=== PATIENT | female | born 1985 | race Caucasian/White ===

== ENCOUNTER → 2017-01-06 | Day surgery (SDC) | payer OTHER ==
[~2017-01-06] MED LIST: ACETAMINOPHEN/HYDROcodone 325 MG/5 MG TAB ONE; BUPIVACAINE/EPINEPHRINE 0.5% 50 ML VIAL ONE; KETOROLAC TROMETHAMINE 30 MG/ML (IVP) VIAL IV PUSH ONE; LACTATED RINGER'S 1000 ML INJ 1,000 ML ONE; MEPERIDINE HCL 25 MG/ML VIAL ONE; MIDAZOLAM HCL 2 MG/2 ML VIAL ONE; ONDANSETRON HCL 4 MG/2 ML VIAL IV PUSH ONE; PROPOFOL 200 MG/20 ML AMP IV ONE; Z.0.BCPILL PO; ceFAZolin INJ 1,000 MG VIAL ONE
--- NOTE | 2017-01-07 12:42 | MP ---
cc: [facility] DATE OF SURGERY: 01/06/2017 PREOPERATIVE DIAGNOSIS Left ankle osteochondritis dissecans lesion, lateral aspect talar dome. POSTOPERATIVE DIAGNOSIS Left ankle osteochondritis dissecans lesion, lateral aspect talar dome. ANESTHESIA General. SURGEON George Mckngiht MD [employer] SURGEON Juan Jose Galeas, ALISA PROCEDURE Left ankle arthroscopic extensive debridement with drilling of unstable osteochondritis dissecans lesion lateral aspect talar dome. ESTIMATED BLOOD LOSS Minimal. COMPLICATIONS None known. INDICATION Mariluz Cervantes is a 31-year-old female with chronic left ankle symptomatology. She now presents for surgical intervention to address the talar dome lesion. 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 The risks and benefits were thoroughly discussed and no guarantees were offered. The first front ventilator Juan Jose Galeas is an advanced registered nurse practitioner. His skill set was medically necessary for the performance of the operation. He assisted by changing the position of the ankle and helping with the traction, varus and valgus stressing, holding the arthroscopy and allowing me to use two hands for shaving and drilling portions of the procedure. DETAILS OF PROCEDURE The patient was brought into the operating room. She was placed under general anesthetic. The left lower extremity is prepped and draped in the usual sterile fashion. IV antibiotics were given. A timeout was completed. We used the Arthrex traction system. We had a tourniquet at the thigh with a leg cervantes and then applied traction to the ankle and injected Marcaine with epinephrine into the ankle joint. We proceeded to distend the joint more and then made small superficial skin portals and then used a small hemostat to spread and puncture through the capsule and then used a blunt-tip trocar to introduce the arthroscope. We used the scope with the shaver through the other portal to just irrigate out the joint and the first photograph shows the medial side of the talar dome and the medial gutter which all appeared normal. The distal tibia plafond region appeared normal. The middle portion of the dome of the talus looked normal. As we looked all the way medial on the direct medial edge midportion of the talus we saw a significant amount of unstable delaminating full-thickness cartilage lesion consistent with the findings on the MRI scan. A portion of this was pushing upwards towards the syndesmosis which was noted on the MRI scan. We proceeded to introduce the shaver and debride unstable soft cartilage all the way down to bone and then we shaved the bone. We made a separate tiny poke hole for introduction of a 0.45 K-wire for drilling of seven small microfracture holes and we smoothed and cleaned any little bony particles. We visualized from the opposite side. We used a 30-degree scope and a 70-degree scope. Switched over switching stick to visualize from the opposite side and double-checked the joint looking for any loose bodies. We then took our final photographs and repeat switched back to the other angle and visualized again and just smoothed and contoured one more time any unstable edge. The final photographs were taken. The arthroscopic equipment was removed. We closed with 4-0 Monocryl subcuticular and Steri-Strips. Sterile dressing applied including Sof-Rol and Uriel wrap. The patient was awoken and returned to the recovery room in stable condition. MD SHOAIB Galindo/RADHA /9:22 AM /12:24 PM
== END | disposition home or self-care (01) ==
LOC: ESDC 06:10
PROVIDERS: ATTEND Orthopaedic Surgery Sports Medicine
DX: M93.272 Osteochondritis dissecans, left ankle and joints of left foot (principal)
CPT/HCPCS: 01464; 29891; J0690; J1885; J2175; J2250; J2405; J3010; J7120